=== PATIENT | male | born 1980 | race Caucasian/White ===

== ENCOUNTER 2016-10-20 03:26 | Inpatient (IN) | payer SELFPAY ==
[2016-10-20 04:06] LABS: BILIRUBIN,URINE NEGATIVE (NEGATIVE); BLOOD/HEMOGLOBIN,URINE 1+ (NEGATIVE); GLUCOSE, URINE NEGATIVE (NEGATIVE); KETONES,URINE 1+ (NEGATIVE); LEUKOCYTE ESTERASE ,URINE NEGATIVE (NEGATIVE); NITRITES,URINE NEGATIVE (NEGATIVE); PROTEIN,URINE 2+ (NEGATIVE); UROBILINOGEN,URINE 1+ (NORMAL)
[2016-10-20 04:13] LABS: COLOR,URINE YELLOW (YELLOW)
[2016-10-20 04:14] LABS: APPEARANCE,URINE SLIGHTLY HAZY (CLEAR); BACTERIA,URINE NEGATIVE /HPF (NEGATIVE); MUCUS,URINE FEW /HPF (NEGATIVE); SQUAMOUS EPITHELIAL CELL,UR FEW /HPF (NEGATIVE)
[2016-10-20 04:19] LABS: ALANINE AMINOTRANSFERASE 23 Units/L (12-78); ALBUMIN 3.8 g/dL (3.4-5.0); ALKALINE PHOSPHATASE 126 Units/L (46-116); AMYLASE 41 Units/L (25-115); ASPARTATE AMINO TRANSFERASE 15 Units/L (15-37); BLOOD UREA NITROGEN 10 mg/dL (7-18); CALCIUM 8.6 mg/dL (8.5-10.1); CHLORIDE 103 mmol/L (98-107); COR NA(FOR HYPERGLY) 141 mmol/L (136-145); CREATININE 1.02 mg/dL (0.70-1.30); GLUCOSE 116 mg/dL (65-99); LIPASE 95 Units/L (73-393); SODIUM 141 mmol/L (136-145); TOTAL PROTEIN 7.8 g/dL (6.4-8.2); eGFR BLACK RACES > 60 (>60); eGFR NON BLACK RACES > 60 (>60)
[2016-10-20 04:25] LABS: BASOPHILS # (AUTO) 0.1 X10^3/uL (0.0-0.1); BASOPHILS % (AUTO) 0.6 % (0.2-1.0); EOSINOPHILS # (AUTO) 0.2 x10^3/uL (0.0-0.2); EOSINOPHILS % (AUTO) 1.4 % (0.9-2.9); HEMATOCRIT 46.6 % (42.0-54.0); HEMOGLOBIN 16.3 g/dL (13.5-18.0); LYMPHOCYTES # (AUTO) 1.8 X10^3/uL (1.3-2.9); LYMPHOCYTES % (AUTO) 12.5 % (21.0-51.0); MEAN CORPUSCULAR HEMOGLOBIN 32.5 pg (27.0-34.0); MEAN CORPUSCULAR HGB CONC 34.8 g/dL (33.0-35.0); MEAN CORPUSCULAR VOLUME 93.3 fL (80.0-100.0); MEAN PLATELET VOLUME 8.5 fL (7.4-11.0); MONOCYTES # (AUTO) 0.9 x10^3/uL (0.3-0.8); MONOCYTES % (AUTO) 5.8 % (0.0-13.0); NEUTROPHILS # (AUTO) 11.7 x10^3/uL (2.2-4.8); NEUTROPHILS % (AUTO) 79.7 % (42.0-75.0); PLATELET COUNT 266 X10^3/uL (150.0-450.0); WHITE BLOOD COUNT 14.7 X10^3/uL (3.6-10.0)
--- NOTE | 2016-10-20 04:27 | DR.GENAD ---
HPI - PCP Primary Care Physician: NFD - HPI Comment HPI Comment: Pt c/o abd pain with nausae and vomiting all day today. he denies F /C /D/and sweats. - Complaint/Symptoms Chief Complaint Doctors Comments: Abd pain wioth nausea and vomiting Chief Complaint:: ABD PAIN AND NV ONSET YESTERDAY Self Treatment fo Chief Complaint: PEPTO BISMOL - Nurses notes reviewed Nurses Notes Review: Yes - Source History Provided: Patient - Mode of Arrival Mode of Arrival: Ambulatory - Timing Onset of Chief Complaint: 10/20/16 Came on: Gradually - Duration Duration: Since Onset How lon Duration: Days - Severity Severity: Moderate - Associated Signs and Symptoms Associated Signs and Symptoms: nausea and vomiting <JANINE STEIN - Last Filed: 10/20/16 07:01> PMH - PMH Past Medical History: No Past Surgical History: No - Family History History of Family Medical Conditions: Yes Family Medical History: Cancer Family Medical History Comment: FATHER - Social History Does patient currently use any type of tobacco product: Yes Have you used tobacco products in the last 12 months: Yes Type of Tobacco Use: Cigarettes Does any household member use tobacco: No Alcohol Use: None Do you use any recreational Drugs:: No Lives With: Spouse Lives Where: Home - infectious screening In the last 2 months have you had wt loss of >10#?: NO Have you had fever, night sweats or hemotysis?: No Have you traveled outside the country in the last 6 months?: No Isolation: Standard <JANINE STEIN - Last Filed: 10/20/16 07:01> ROS - Review of Systems Constitutional: No Symptoms Reported, Loss of Appetite Eyes: No Symptoms Reported ENTM: No Symptoms Reported Respiratoy: No Symptoms Reported Cardiovascular: No Symptoms Reported Gastrointestinal/Abdominal: See HPI, Abdominal Pain, Nausea, Vomiting Genitourinary: No Symptoms Reported Neurological: No Symptoms Reported, Emotional Problems Musculoskeletal: No Symptoms Reported Integumentary: No Symptoms Reported Hematologic/Lymphatic: No Symptoms Reported Endocrine: No Symptoms Reported Psychiatric: No Symptoms Reported All Other Systems: Reviewed and Negative <JANINE STEIN - Last Filed: 10/20/16 07:01> PE - General Limitations: No Limitations General Appearance: Alert, In No Apparent Distress - Head Head Exam: Normal Inspection, Atraumatic - ENT ENT Exam: Normal Exam, Normal Oropharynx, Mucous Membranes Moist External Ear Exam: Normal External Inspection TM/Canal Exam: Bilateral Normal Nose Exam: Normal Nose Exam Mouth Exam: Normal Inspection Throat Exam: Normal Inspection - Neck Neck Exam: Normal Inspection, Full ROM, Trachea Midline - Chest Chest Inspection: Normal Inspection, Symmetric Chest Wall Rise - Respiratory Respiratory Exam: Normal Lung Sounds Bilat Respiratory Exam: Bilateral Clear to Auscultation - Cardiovascular Cardiovascular Exam: Regular Rate, Normal Rhythm, Normal Heart Sounds - Abdominal Exam Abdominal Exam: Normal Inspection, Soft, Tenderness, Rebound, Hyperactive Bowel Sounds Abdominal Tenderness: RLQ, Epigastrium (para umbilical), Moderate - Extremities Extremities Exam: Normal Inspection, Full ROM - Back Back Exam: Normal Inspection - Neurologic Neurological Exam: Alert, Oriented X3, CN II-XII Intact - Psychiatric Psychiatric Exam: Normal Affect, Normal Mood - Skin Skin Exam: Warm, Dry, Intact, Normal Color <JANINE STEIN - Last Filed: 10/20/16 07:01> MDM - Differential Diagnosis Differential Diagnosis: gastroenteritis, viral syndrome, gastritis, cholecystitis <JANINE STEIN - Last Filed: 10/20/16 07:01> Course - Treatment Treatment: SEE ORDERS - Consultation Consultation Comments: DR COTE TAKING PATIENT TO OR. DR. METCALF WILL ADMIT PATIENT. - Education/Counseling Education/Counseling: Patient, Education Educated On: Treatment, Diagnosis <ALCIDES PALUMBO - Last Filed: 10/23/16 11:29> ROR - Labs Reviewed Result Diagrams: 10/20/16 03:50 10/20/16 03:50 <JANINE STEIN - Last Filed: 10/20/16 07:01> - Labs Reviewed Laboratory Results Reviewed?: Yes Result Diagrams: 10/23/16 03:05 10/23/16 03:05 - XRAY XRAY Interpreted by: Radiologist XRAY Findings: REPORT DISCUSS WITH PATIENT <ALCIDES PALUMBO - Last Filed: 10/23/16 11:29> - Labs Reviewed Laboratory: WBC 9.1 X10^3/uL (3.6-10.0) 10/23/16 03:05 RBC 3.81 X10^6/uL (4.7-6.0) L 10/23/16 03:05 Hgb 12.6 g/dL (13.5-18.0) L 10/23/16 03:05 Hct 35.3 % (42.0-54.0) L 10/23/16 03:05 MCV 92.8 fL (80.0-100.0) 10/23/16 03:05 MCH 33.1 pg (27.0-34.0) 10/23/16 03:05 MCHC 35.7 g/dL (33.0-35.0) H 10/23/16 03:05 RDW 12.8 % (11.6-16.5) 10/23/16 03:05 Plt Count 221 X10^3/uL (150.0-450.0) 10/23/16 03:05 MPV 9.3 fL (7.4-11.0) 10/23/16 03:05 Neut % 80.0 % (42.0-75.0) H 10/23/16 03:05 Lymph % 9.2 % (21.0-51.0) L 10/23/16 03:05 [place] % 6.7 % (0.0-13.0) 10/23/16 03:05 Eos % 3.6 % (0.9-2.9) H 10/23/16 03:05 Baso % 0.5 % (0.2-1.0) 10/23/16 03:05 Neut # 7.3 x10^3/uL (2.2-4.8) H 10/23/16 03:05 Lymph # 0.8 X10^3/uL (1.3-2.9) L 10/23/16 03:05 [place] # 0.6 x10^3/uL (0.3-0.8) 10/23/16 03:05 Eos # 0.3 x10^3/uL (0.0-0.2) H 10/23/16 03:05 Baso # 0.0 X10^3/uL (0.0-0.1) 10/23/16 03:05 Absolute Nucleated RBC 0.0 /100WBC 10/23/16 03:05 Sodium 141 mmol/L (136-145) 10/23/16 03:05 Corrected Sodium TNP 10/23/16 03:05 Potassium 2.9 mmol/L (3.5-5.1) L* 10/23/16 03:05 Chloride 101 mmol/L (98-107) 10/23/16 03:05 Carbon Dioxide 35.6 mmol/L (21-32) H 10/23/16 03:05 BUN 14 mg/dL (7-18) 10/23/16 03:05 Creatinine 1.02 mg/dL (0.70-1.30) 10/23/16 03:05 Est GFR (MDRD) Af Amer > 60 (>60) 10/23/16 03:05 Est GFR (MDRD) Non-Af > 60 (>60) 10/23/16 03:05 Glucose 110 mg/dL (65-99) H 10/23/16 03:05 Calcium 7.9 mg/dL (8.5-10.1) L 10/23/16 03:05 Corrected Calcium 9.3 mg/dL (8.5-10.1) 10/23/16 03:05 Magnesium 1.8 mg/dL (1.7-2.9) 10/23/16 03:05 Total Bilirubin 1.30 mg/dL (0.2-1.0) H 10/23/16 03:05 AST 16 Units/L (15-37) 10/23/16 03:05 ALT 16 Units/L (12-78) 10/23/16 03:05 Alkaline Phosphatase 66 Units/L (46-116) 10/23/16 03:05 Total Protein 6.2 g/dL (6.4-8.2) L 10/23/16 03:05 Albumin 2.2 g/dL (3.4-5.0) L 10/23/16 03:05 Globulin 4.0 g/dL (2.5-4.5) 10/23/16 03:05 Albumin/Globulin Ratio 0.6 Ratio (1.1-2.1) L 10/23/16 03:05 Amylase 41 Units/L (25-115) 10/20/16 03:50 Lipase 95 Units/L (73-393) 10/20/16 03:50 Specimen Type Clean catch urine 10/20/16 03:46 Urine Color Yellow (YELLOW) 10/20/16 03:46 Urine Appearance Slightly hazy (CLEAR) 10/20/16 03:46 Urine pH 6.0 (5.0 - 8.0) 10/20/16 03:46 Ur Specific [place] 1.025 (1.000-1.030) 10/20/16 03:46 Urine Protein 2+ (NEGATIVE) 10/20/16 03:46 Urine Glucose (UA) Negative (NEGATIVE) 10/20/16 03:46 Urine Ketones 1+ (NEGATIVE) 10/20/16 03:46 Urine Occult Blood 1+ (NEGATIVE) 10/20/16 03:46 Urine Nitrite Negative (NEGATIVE) 10/20/16 03:46 Urine Bilirubin Negative (NEGATIVE) 10/20/16 03:46 Urine Urobilinogen 1+ (NORMAL) 10/20/16 03:46 Ur Leukocyte Esterase Negative (NEGATIVE) 10/20/16 03:46 Urine RBC 2-6 /HPF (NEGATIVE) 10/20/16 03:46 Urine WBC 0-3 /HPF (NEGATIVE) 10/20/16 03:46 Ur Squamous Epith Cells Few /HPF (NEGATIVE) 10/20/16 03:46 Urine Bacteria Negative /HPF (NEGATIVE) 10/20/16 03:46 Urine Mucus Few /HPF (NEGATIVE) 10/20/16 03:46 Ur Culture Indicated? No/not indicated 10/20/16 03:46 Tissue Pathology To follow 10/20/16 11:56 (JANINE STEIN) (ALCIDES PALUMBO) <JANINE STEIN - Last Filed: 10/20/16 07:01> <ALCIDES PALUMBO - Last Filed: 10/23/16 11:29> - Diagnosis Discharge Problem: Gastroenteritis, Appendicitis, acute Abdominal pain Qualifiers: Abdominal location: periumbilical Qualified Code(s): R10.33 - Periumbilical pain Ileitis, terminal Qualifiers: Digestive disease complication type: with intestinal obstruction Qualified Code (s): K50.012 - Crohn's disease of small intestine with intestinal obstruction - Discharge Plan Disposition: ADMITTED INPATIENT Condition: Stable
[2016-10-20] MEDS ORDERED: NS 1000 ML 300 ML IV ONE (04:39)
[2016-10-20] MEDS ORDERED: TORADOL 60 MG VIAL IVP ONE (04:39)
[2016-10-20] MEDS ORDERED: ZOFRAN INJ 4 MG VIAL IVP ONE (04:40)
[2016-10-20] MEDS ORDERED: PEPCID 20 MG IV PREMIX* 20 MG/50 ML BAG IV ONE ×2 (04:41→04:45)
[2016-10-20] MEDS ORDERED: ZOFRAN INJ 4 MG VIAL ONE ×3 (04:45→15:06)
[2016-10-20] MEDS ORDERED: NS 1000 ML 1,000 ML ONE ×2 (04:45→07:32)
[2016-10-20] MEDS ORDERED: TORADOL 30 MG VIAL ONE (04:45)
--- NOTE | 2016-10-20 04:50 | RAD ---
EXAM: Abdomen series and Chest x-ray INDICATION: Abdominal pain COMPARISION: No priors TECHNIQUE: Abdomen flat and upright, two views and PA view of the chest, single view FINDINGS: The lungs are clear. No pneumothorax or pleural effusion. The cardiac silhouette and mediastinum are normal. The bowel gas pattern is nonobstructed. No abnormal mass effect or calcification. The regio nal skeleton is intact. No free air is seen under the hemidiaphragms. IMPRESSION: Normal abdominal series and chest x-ray. Reported By:
[2016-10-20] MEDS ORDERED: NS 100 ML IV 100 ML IV ONE (04:59)
--- NOTE | 2016-10-20 06:54 | CT ---
CT abdomen and pelvis with contrast Indication: Abdominal pain Comparison: None available Technique: Multiple axial images of the abdomen and pelvis were obtained from the lung bases to the pubic symph ysis after the administration of IV contrast. Coronal and sagittal reformatted images were also pro vided. Radiation dose reduction techniques were performed utilizing adjustment for MA/kVP based on patient body size. Findings: The the lung bases are clear. No focal hepatic lesion. The gallbladder, bile ducts, spleen, pancreas and adrenal glands are normal. The right kidney demonstrates no evidence of nephrolithiasis or hydr onephrosis. The left kidney contains an approximate 3.5 mm stone within the midpole. No ureteral sto ne or hydroureteronephrosis. Urinary bladder is normal. Prostate gland is normal. Upper GI tract dem onstrates a small sliding hiatal hernia. There is fecalization of the terminal ileum with increased mucosal enhancement and small amount of fluid surrounding the dilated loop of terminal ileum. Small amount of fluid is also noted adjacent to multiple loops of left lower quadrant small bowel and desc ending colon. At the bases cecum there is either inflamed loop of small bowel or an inflamed appendi x seen best on coronal image 26 and axial image 70. No normal appearing appendix is identified. Is a bdominal aorta is normal in caliber. Small amount of pelvic free fluid. The mildly enlarged right lower quadrant mesenteric lymph nodes. No acute osseous abnormality. Impression: 1.An acute inflammatory process within the right lower quadrant with moderate mucosal enhancement, d ilatation and fecalization of the terminal ileum extending to the cecal base consistent with a funct ional early partial small bowel obstruction. There is also an inflammatory process inferior to the c ecal base in the expected location of the appendix which may represent an inflamed appendix or an ad ditional loop of inflamed distal small bowel. Given lack of visualized of a normal appendix differen tial considerations include both acute appendicitis with reactive terminal ileitis or an acute infla mmatory process such as Crohn's disease with secondary involvement of the appendix. Correlation with clinical findings and surgical consultation are recommended . 2. Small amount of fluid surrounding several loops of left lower quadrant and right lower quadrant s mall bowel and colon raises concern for developing ischemia/severe inflammation. No free air or pneu matosis. 3. Nonobstructing stone within the midpole left kidney. Reported By:
[2016-10-20] MEDS ORDERED: ZOSYN VIAL 3.375 GM IV ONE (07:31)
[2016-10-20] MEDS ORDERED: NS 100 ML IV + SPIKE MINIBAG* 100 ML IV ONE (07:31)
[2016-10-20] MEDS ORDERED: ZOFRAN INJ 4 MG VIAL IVP PRN ×2 (07:42→11:57)
[2016-10-20] MEDS ORDERED: MORPHINE SULFATE INJ 2 MG IVP PRN (07:42)
[2016-10-20] MEDS ORDERED: PEPCID 20 MG IV PREMIX* 20 MG/50 ML BAG IV PRN (07:42)
[2016-10-20] MEDS ORDERED: LR 1000 ML IV 1,000 ML IV ONE ×3 (08:30→11:04)
[2016-10-20] MEDS ORDERED: DILAUDID INJ ONE (08:54)
[2016-10-20] MEDS: FENTANYL INJ 250 mcg ONE ×2 (08:56→09:09)
[2016-10-20] MEDS: MARCAINE 0.25% WITH EPI IJ ONE ×2 (08:56→09:32)
[2016-10-20] MEDS: XYLOCAINE 1 % (PLAIN) ONE ×2 (08:56→09:32)
[2016-10-20] MEDS ORDERED: NS IRRIGATION 3000 ML 3,000 ML IR ONE (09:35)
[2016-10-20] MEDS ORDERED: FENTANYL INJ 250 mcg ONE (10:13)
[2016-10-20] MEDS ORDERED: NS IRRIGATION 1000 ML 1,000 ML IR ONE ×5 (10:17→11:06)
[2016-10-20] MEDS ORDERED: FENTANYL INJ 100 mcg ONE (11:15)
[2016-10-20] MEDS ORDERED: REGLAN INJ 10 MG VIAL IVP PRN (11:57)
[2016-10-20] MEDS ORDERED: BENADRYL INJ 50 MG VIAL IVP PRN (11:57)
[2016-10-20] MEDS ORDERED: PHENERGAN INJ 25 MG IVP PRN (11:57)
[2016-10-20] MEDS ORDERED: DILAUDID INJ IVP PRN (11:57)
[2016-10-20] MEDS: MORPHINE SULFATE INJ 2 MG IVP PRN ×3 (13:09→17:04)
[2016-10-20] MEDS: ZOSYN VIAL 4.5 GM 4.5 GM in NS 100 ML IV + SPIKE MINIBAG* 100 ML IV SCH ×3 (13:10→22:17)
[2016-10-20] MEDS ORDERED: DIPRIVAN VIAL ONE ×2 (14:43→15:06)
[2016-10-20] MEDS ORDERED: ULTANE GAS IN ONE ×2 (14:43→15:06)
[2016-10-20] MEDS ORDERED: NORCURON INJ 10 MG VIAL ONE ×2 (14:43→15:06)
[2016-10-20] MEDS ORDERED: DYLOJECT INJ ONE ×2 (14:43→15:06)
[2016-10-20] MEDS ORDERED: QUELICIN (OR ANECTINE) ONE ×2 (14:43→15:06)
[2016-10-20] MEDS: D5 1/2 NS 1000 ML 1,000 ML IV SCH (14:48)
[2016-10-20] MEDS ORDERED: NEOSTIGMINE INJ ONE (15:06)
[2016-10-20] MEDS ORDERED: VERSED ONE (15:06)
[2016-10-20] MEDS ORDERED: ROBINUL ONE (15:06)
[2016-10-20] MEDS: DILAUDID INJ IVP PRN ×4 (17:34→23:31)
[2016-10-20] MEDS: HEPARIN SODIUM INJ 5000 UNITS IVP SCH (18:52)
[2016-10-20] MEDS: PHENERGAN INJ 25 MG IV PRN (23:31)
[2016-10-21] MEDS: DILAUDID INJ IVP PRN ×7 (01:52→20:51)
[2016-10-21] MEDS: HEPARIN SODIUM INJ 5000 UNITS IVP SCH (01:52)
[2016-10-21] MEDS: ZOSYN VIAL 4.5 GM 4.5 GM in NS 100 ML IV + SPIKE MINIBAG* 100 ML IV SCH ×3 (05:12→21:00)
[2016-10-21] MEDS ORDERED: TYLENOL 325 MG TAB PO PRN ×2 (05:22→10:03)
[2016-10-21 06:04] VITALS: BMI 26.3
[2016-10-21] MEDS: D5 1/2 NS 1000 ML 1,000 ML IV SCH ×5 (07:11→20:48)
[2016-10-21 07:47] LABS: BASOPHILS # (AUTO) 0.1 X10^3/uL (0.0-0.1); BASOPHILS % (AUTO) 0.6 % (0.2-1.0); EOSINOPHILS # (AUTO) 0.1 x10^3/uL (0.0-0.2); EOSINOPHILS % (AUTO) 0.9 % (0.9-2.9); HEMATOCRIT 39.4 % (42.0-54.0); HEMOGLOBIN 14.1 g/dL (13.5-18.0); LYMPHOCYTES # (AUTO) 1.5 X10^3/uL (1.3-2.9); LYMPHOCYTES % (AUTO) 14.6 % (21.0-51.0); MEAN CORPUSCULAR HEMOGLOBIN 33.2 pg (27.0-34.0); MEAN CORPUSCULAR HGB CONC 35.7 g/dL (33.0-35.0); MEAN PLATELET VOLUME 9.2 fL (7.4-11.0); MONOCYTES % (AUTO) 9.5 % (0.0-13.0); NEUTROPHILS # (AUTO) 7.7 x10^3/uL (2.2-4.8); NEUTROPHILS % (AUTO) 74.4 % (42.0-75.0); PLATELET COUNT 206 X10^3/uL (150.0-450.0); RED BLOOD COUNT 4.24 X10^6/uL (4.7-6.0); RED CELL DISTRIBUTION WIDTH 13.2 % (11.6-16.5); WHITE BLOOD COUNT 10.3 X10^3/uL (3.6-10.0)
[2016-10-21 07:57] LABS: ALANINE AMINOTRANSFERASE 16 Units/L (12-78); ALBUMIN 2.7 g/dL (3.4-5.0); ALKALINE PHOSPHATASE 79 Units/L (46-116); ASPARTATE AMINO TRANSFERASE 18 Units/L (15-37); BLOOD UREA NITROGEN 10 mg/dL (7-18); CALCIUM 7.8 mg/dL (8.5-10.1); CARBON DIOXIDE 28.1 mmol/L (21-32); CHLORIDE 103 mmol/L (98-107); COR CA(FOR HYPOALB) 8.8 mg/dL (8.5-10.1); COR NA(FOR HYPERGLY) 139 mmol/L (136-145); CREATININE 1.01 mg/dL (0.70-1.30); GLUCOSE 134 mg/dL (65-99); SODIUM 138 mmol/L (136-145); TOTAL PROTEIN 6.2 g/dL (6.4-8.2); eGFR BLACK RACES > 60 (>60); eGFR NON BLACK RACES > 60 (>60)
--- NOTE | 2016-10-21 08:12 | DR.H&P ---
H&P - History & Physical for Day of: H&P Date: 10/20/16 - Chief Complaint Chief Complaint: abdominal pain - Allergies Allergies/Adverse Reactions: Allergies Allergy/AdvReac Type Severity Reaction Status Date / Time No Known Drug Allergies Allergy Verified 10/21/16 02:26 - History of Present Illness History of Present Illness: Patient is a 36yo white male who presented to the emergency with abdominal pain and vomiting. an abominalct was performed which was sugesstive of appendicitis. Patient dr ornelas was consulted and patient admitted - Past Medical History Past Medical History: GERD - Family History Family Medical History: Cancer - Social History Does patient currently use any type of tobacco product: Yes Have you used tobacco products in the last 12 months: Yes Type of Tobacco Use: Cigarettes How many years tobacco product used: 22 Does any household member use tobacco: No Alcohol Use: None Drug Use: None - Review of Systems Constitutional: No Symptoms Reported Eyes: No Symptoms Reported ENT: No Symptoms Reported Respiratory: No Symptoms Reported Cardiovascular: No Symptoms Reported Gastrointestinal: Nausea, Vomiting, Abdominal Pain Genitourinary: No Symptoms Reported Musculoskeletal: No Symptoms Reported Skin: No Symptoms Reported Neurological: No Symptoms Reported - Physical Exam Vital Signs: Temperature 101.4 F Pulse Rate [Right Brachial] 120 Pulse Rate 89 Respiratory Rate 16 Blood Pressure [Right Arm] 134/74 Blood Pressure 147/67 O2 Sat by Pulse Oximetry 91 Oriented: Normal Eyes: Normal Ear: Normal Nose: Normal Throat: Normal Respiratory: Clear Throughout Cardiovascular: Normal : Normal Auscultation: Bowel Sounds: Normal Palpation: Normal Tenderness: LLQ Skin: Normal Musculoskeletal: Normal Psychiatric: Normal Mood Description: Anxious Affect: Anxious Speech Pattern: Clear, Appropriate - Assessment/Plan (1) Abdominal pain Qualifiers: Abdominal location: periumbilical Qualified Code(s): R10.33 - Periumbilical pain Status: Acute Plan: pain medication as needed (2) Appendicitis, acute Qualifiers: Acute appendicitis type: unspecified acute appendicitis type Qualified Code (s): K35.80 - Unspecified acute appendicitis Status: Acute Plan: consult dr ornelas
--- NOTE | 2016-10-21 08:16 | PCM.PROG ---
Progress Note - Progress Note for Day of Date: 10/21/16 - Subjective Subjective: Patient is a 36yo who is day 1 post op appendectomy. Patient began running a fever this am of 101.4. Patient is complain ing of pain un relieved by dilaudid 0.5mg and nausea. we are going to increase his dilaudid, place NGT on low intermittent suction and give toradol. repeat labs in the am and patient may have ice chips - Past Medical Family Social History Past Med/Fam/Surg Hx: No changes since H&P Allergies: Allergies No Known Drug Allergies Allergy (Verified 10/21/16 02:26) - Review of Systems ROS: No change since H&P - Vital Signs and I&O's Vital Signs: Temperature 101.4 F Pulse Rate [Right Brachial] 120 Pulse Rate 89 Respiratory Rate 16 Blood Pressure [Right Arm] 134/74 Blood Pressure 147/67 O2 Sat by Pulse Oximetry 91 Intake and Output: Intake & Output 10/18/16 10/19/16 10/20/16 10/21/16 11:59 11:59 11:59 11:59 Intake Total 1200 Output Total 4350 350 Balance -4350 850 - Physical Exam Oriented: Normal Eyes: Normal Ear: Normal Nose: Normal Throat: Normal Cardiovascular: Normal : Normal Auscultation: Bowel Sounds: Normal Palpation: Normal Tenderness: Diffuse Skin: Normal Musculoskeletal: Normal Psychiatric: Normal Mood Description: Anxious Affect: Anxious Speech Pattern: Clear, Appropriate - Laboratory and Diagnostics Result Diagrams: 10/21/16 06:25 10/21/16 06:25 Labs: Laboratory WBC 10.3 X10^3/uL (3.6-10.0) H 10/21/16 06:25 RBC 4.24 X10^6/uL (4.7-6.0) L 10/21/16 06:25 Hgb 14.1 g/dL (13.5-18.0) 10/21/16 06:25 Hct 39.4 % (42.0-54.0) L 10/21/16 06:25 MCV 93.0 fL (80.0-100.0) 10/21/16 06:25 MCH 33.2 pg (27.0-34.0) 10/21/16 06:25 MCHC 35.7 g/dL (33.0-35.0) H 10/21/16 06:25 RDW 13.2 % (11.6-16.5) 10/21/16 06:25 Plt Count 206 X10^3/uL (150.0-450.0) 10/21/16 06:25 MPV 9.2 fL (7.4-11.0) 10/21/16 06:25 Neut % 74.4 % (42.0-75.0) 10/21/16 06:25 Lymph % 14.6 % (21.0-51.0) L 10/21/16 06:25 [place] % 9.5 % (0.0-13.0) 10/21/16 06:25 Eos % 0.9 % (0.9-2.9) 10/21/16 06:25 Baso % 0.6 % (0.2-1.0) 10/21/16 06:25 Neut # 7.7 x10^3/uL (2.2-4.8) H 10/21/16 06:25 Lymph # 1.5 X10^3/uL (1.3-2.9) 10/21/16 06:25 [place] # 1.0 x10^3/uL (0.3-0.8) H 10/21/16 06:25 Eos # 0.1 x10^3/uL (0.0-0.2) 10/21/16 06:25 Baso # 0.1 X10^3/uL (0.0-0.1) 10/21/16 06:25 Absolute Nucleated RBC 0.1 /100WBC 10/21/16 06:25 Sodium 138 mmol/L (136-145) 10/21/16 06:25 Corrected Sodium 139 mmol/L (136-145) 10/21/16 06:25 Potassium 3.7 mmol/L (3.5-5.1) 10/21/16 06:25 Chloride 103 mmol/L (98-107) 10/21/16 06:25 Carbon Dioxide 28.1 mmol/L (21-32) 10/21/16 06:25 BUN 10 mg/dL (7-18) 10/21/16 06:25 Creatinine 1.01 mg/dL (0.70-1.30) 10/21/16 06:25 Est GFR (MDRD) Af Amer > 60 (>60) 10/21/16 06:25 Est GFR (MDRD) Non-Af > 60 (>60) 10/21/16 06:25 Glucose 134 mg/dL (65-99) H 10/21/16 06:25 Calcium 7.8 mg/dL (8.5-10.1) L 10/21/16 06:25 Corrected Calcium 8.8 mg/dL (8.5-10.1) 10/21/16 06:25 Total Bilirubin 1.90 mg/dL (0.2-1.0) H 10/21/16 06:25 AST 18 Units/L (15-37) 10/21/16 06:25 ALT 16 Units/L (12-78) 10/21/16 06:25 Alkaline Phosphatase 79 Units/L (46-116) 10/21/16 06:25 Total Protein 6.2 g/dL (6.4-8.2) L 10/21/16 06:25 Albumin 2.7 g/dL (3.4-5.0) L 10/21/16 06:25 Globulin 3.5 g/dL (2.5-4.5) 10/21/16 06:25 Albumin/Globulin Ratio 0.8 Ratio (1.1-2.1) L 10/21/16 06:25 Amylase 41 Units/L (25-115) 10/20/16 03:50 Lipase 95 Units/L (73-393) 10/20/16 03:50 Specimen Type Clean catch urine 10/20/16 03:46 Urine Color Yellow (YELLOW) 10/20/16 03:46 Urine Appearance Slightly hazy (CLEAR) 10/20/16 03:46 Urine pH 6.0 (5.0 - 8.0) 10/20/16 03:46 Ur Specific [place] 1.025 (1.000-1.030) 10/20/16 03:46 Urine Protein 2+ (NEGATIVE) 10/20/16 03:46 Urine Glucose (UA) Negative (NEGATIVE) 10/20/16 03:46 Urine Ketones 1+ (NEGATIVE) 10/20/16 03:46 Urine Occult Blood 1+ (NEGATIVE) 10/20/16 03:46 Urine Nitrite Negative (NEGATIVE) 10/20/16 03:46 Urine Bilirubin Negative (NEGATIVE) 10/20/16 03:46 Urine Urobilinogen 1+ (NORMAL) 10/20/16 03:46 Ur Leukocyte Esterase Negative (NEGATIVE) 10/20/16 03:46 Urine RBC 2-6 /HPF (NEGATIVE) 10/20/16 03:46 Urine WBC 0-3 /HPF (NEGATIVE) 10/20/16 03:46 Ur Squamous Epith Cells Few /HPF (NEGATIVE) 10/20/16 03:46 Urine Bacteria Negative /HPF (NEGATIVE) 10/20/16 03:46 Urine Mucus Few /HPF (NEGATIVE) 10/20/16 03:46 Ur Culture Indicated? No/not indicated 10/20/16 03:46 Tissue Pathology To follow 10/20/16 11:56 - Plan (1) Abdominal pain Status: Acute Qualifiers: Abdominal location: periumbilical Qualified Code(s): R10.33 - Periumbilical pain Plan: increase dilaudid to 1-2mg PRN (2) Appendicitis, acute Status: Resolved Qualifiers: Acute appendicitis type: unspecified acute appendicitis type Qualified Code (s): K35.80 - Unspecified acute appendicitis Plan: consult dr ornelas (3) S/P appendectomy Status: Acute Plan: pain control dr ornelas to follow
[2016-10-21] MEDS: TORADOL 30 MG VIAL IVP PRN ×2 (08:53→17:44)
--- NOTE | 2016-10-21 10:23 | PCM.PROG ---
Progress Note - Subjective Subjective: Pain controlled. (+) OOB. (+) Nausea. (-) Vomiting. (-) Flatus. (-) Dysuria. Using Incentive Spironmeter. - Past Medical Family Social History Past Med/Fam/Surg Hx: No changes since H&P Allergies: Allergies No Known Drug Allergies Allergy (Verified 10/21/16 02:26) - Review of Systems ROS: No change since H&P - Vital Signs and I&O's Vital Signs: Temperature 101.4 F Pulse Rate [Right Brachial] 120 Pulse Rate 105 Respiratory Rate 16 Blood Pressure [Right Arm] 134/74 Blood Pressure 147/67 O2 Sat by Pulse Oximetry 95 Intake and Output: Intake & Output 10/18/16 10/19/16 10/20/16 10/21/16 11:59 11:59 11:59 11:59 Intake Total 1200 Output Total 4350 350 Balance -4350 850 - Physical Exam Oriented: Normal Eyes: Normal Ear: Normal Nose: Normal Throat: Normal Respiratory: Diminished Cardiovascular: Normal : Normal Auscultation: Bowel Sounds: Normal, Decreased Palpation: Other (Approp. TTP. Dressing C/D/I.) Tenderness: Diffuse Skin: Normal Musculoskeletal: Normal Psychiatric: Normal Mood Description: Anxious Affect: Anxious Speech Pattern: Clear, Appropriate - Laboratory and Diagnostics Result Diagrams: 10/21/16 06:25 10/21/16 06:25 Labs: Laboratory WBC 10.3 X10^3/uL (3.6-10.0) H 10/21/16 06:25 RBC 4.24 X10^6/uL (4.7-6.0) L 10/21/16 06:25 Hgb 14.1 g/dL (13.5-18.0) 10/21/16 06:25 Hct 39.4 % (42.0-54.0) L 10/21/16 06:25 MCV 93.0 fL (80.0-100.0) 10/21/16 06:25 MCH 33.2 pg (27.0-34.0) 10/21/16 06:25 MCHC 35.7 g/dL (33.0-35.0) H 10/21/16 06:25 RDW 13.2 % (11.6-16.5) 10/21/16 06:25 Plt Count 206 X10^3/uL (150.0-450.0) 10/21/16 06:25 MPV 9.2 fL (7.4-11.0) 10/21/16 06:25 Neut % 74.4 % (42.0-75.0) 10/21/16 06:25 Lymph % 14.6 % (21.0-51.0) L 10/21/16 06:25 [place] % 9.5 % (0.0-13.0) 10/21/16 06:25 Eos % 0.9 % (0.9-2.9) 10/21/16 06:25 Baso % 0.6 % (0.2-1.0) 10/21/16 06:25 Neut # 7.7 x10^3/uL (2.2-4.8) H 10/21/16 06:25 Lymph # 1.5 X10^3/uL (1.3-2.9) 10/21/16 06:25 [place] # 1.0 x10^3/uL (0.3-0.8) H 10/21/16 06:25 Eos # 0.1 x10^3/uL (0.0-0.2) 10/21/16 06:25 Baso # 0.1 X10^3/uL (0.0-0.1) 10/21/16 06:25 Absolute Nucleated RBC 0.1 /100WBC 10/21/16 06:25 Sodium 138 mmol/L (136-145) 10/21/16 06:25 Corrected Sodium 139 mmol/L (136-145) 10/21/16 06:25 Potassium 3.7 mmol/L (3.5-5.1) 10/21/16 06:25 Chloride 103 mmol/L (98-107) 10/21/16 06:25 Carbon Dioxide 28.1 mmol/L (21-32) 10/21/16 06:25 BUN 10 mg/dL (7-18) 10/21/16 06:25 Creatinine 1.01 mg/dL (0.70-1.30) 10/21/16 06:25 Est GFR (MDRD) Af Amer > 60 (>60) 10/21/16 06:25 Est GFR (MDRD) Non-Af > 60 (>60) 10/21/16 06:25 Glucose 134 mg/dL (65-99) H 10/21/16 06:25 Calcium 7.8 mg/dL (8.5-10.1) L 10/21/16 06:25 Corrected Calcium 8.8 mg/dL (8.5-10.1) 10/21/16 06:25 Total Bilirubin 1.90 mg/dL (0.2-1.0) H 10/21/16 06:25 AST 18 Units/L (15-37) 10/21/16 06:25 ALT 16 Units/L (12-78) 10/21/16 06:25 Alkaline Phosphatase 79 Units/L (46-116) 10/21/16 06:25 Total Protein 6.2 g/dL (6.4-8.2) L 10/21/16 06:25 Albumin 2.7 g/dL (3.4-5.0) L 10/21/16 06:25 Globulin 3.5 g/dL (2.5-4.5) 10/21/16 06:25 Albumin/Globulin Ratio 0.8 Ratio (1.1-2.1) L 10/21/16 06:25 Amylase 41 Units/L (25-115) 10/20/16 03:50 Lipase 95 Units/L (73-393) 10/20/16 03:50 Specimen Type Clean catch urine 10/20/16 03:46 Urine Color Yellow (YELLOW) 10/20/16 03:46 Urine Appearance Slightly hazy (CLEAR) 10/20/16 03:46 Urine pH 6.0 (5.0 - 8.0) 10/20/16 03:46 Ur Specific [place] 1.025 (1.000-1.030) 10/20/16 03:46 Urine Protein 2+ (NEGATIVE) 10/20/16 03:46 Urine Glucose (UA) Negative (NEGATIVE) 10/20/16 03:46 Urine Ketones 1+ (NEGATIVE) 10/20/16 03:46 Urine Occult Blood 1+ (NEGATIVE) 10/20/16 03:46 Urine Nitrite Negative (NEGATIVE) 10/20/16 03:46 Urine Bilirubin Negative (NEGATIVE) 10/20/16 03:46 Urine Urobilinogen 1+ (NORMAL) 10/20/16 03:46 Ur Leukocyte Esterase Negative (NEGATIVE) 10/20/16 03:46 Urine RBC 2-6 /HPF (NEGATIVE) 10/20/16 03:46 Urine WBC 0-3 /HPF (NEGATIVE) 10/20/16 03:46 Ur Squamous Epith Cells Few /HPF (NEGATIVE) 10/20/16 03:46 Urine Bacteria Negative /HPF (NEGATIVE) 10/20/16 03:46 Urine Mucus Few /HPF (NEGATIVE) 10/20/16 03:46 Ur Culture Indicated? No/not indicated 10/20/16 03:46 Tissue Pathology To follow 10/20/16 11:56 - Plan (1) S/P small bowel resection Status: Acute Narrative Support Text: POD #1 Stable post-op. (+) fever. Likely atelectasis. Pulmonary toilet / IS use. Continue IV abx. for perforation with contamination. WBC decreased. Continue NGT - place to LIWS until flatus. Dressing take down in am. Plan: Routine post-op care. (2) Fever Status: Acute Qualifiers: Fever type: post-procedural Encounter type: E Qualified Code(s): R50.82 - Postprocedural fever Plan: Monitor. See SBR text. (3) DVT prophylaxis Status: Acute Plan: Heparin 5000 units subcut. q8.
[2016-10-21] MEDS: HEPARIN SODIUM INJ 5000 UNITS SC SCH ×2 (12:20→18:56)
[2016-10-21] MEDS: PHENERGAN INJ 25 MG IV PRN (20:50)
[2016-10-22] MEDS: HEPARIN SODIUM INJ 5000 UNITS SC SCH ×3 (00:04→16:24)
[2016-10-22] MEDS: TORADOL 30 MG VIAL IVP PRN ×3 (00:05→19:49)
[2016-10-22] MEDS: D5 1/2 NS 1000 ML 1,000 ML IV SCH ×4 (02:29→21:27)
[2016-10-22] MEDS: PHENERGAN INJ 25 MG IV PRN (04:22)
[2016-10-22] MEDS: DILAUDID INJ IVP PRN ×4 (04:22→23:13)
[2016-10-22] MEDS: ZOSYN VIAL 4.5 GM 4.5 GM in NS 100 ML IV + SPIKE MINIBAG* 100 ML IV SCH ×3 (05:40→21:23)
[2016-10-22 06:15] LABS: ALANINE AMINOTRANSFERASE 16 Units/L (12-78); ALBUMIN 2.5 g/dL (3.4-5.0); ALKALINE PHOSPHATASE 71 Units/L (46-116); ASPARTATE AMINO TRANSFERASE 17 Units/L (15-37); BLOOD UREA NITROGEN 13 mg/dL (7-18); CALCIUM 8.2 mg/dL (8.5-10.1); CARBON DIOXIDE 35.1 mmol/L (21-32); CHLORIDE 102 mmol/L (98-107); COR CA(FOR HYPOALB) 9.4 mg/dL (8.5-10.1); CREATININE 1.15 mg/dL (0.70-1.30); GLUCOSE 102 mg/dL (65-99); SODIUM 140 mmol/L (136-145); TOTAL PROTEIN 6.3 g/dL (6.4-8.2); eGFR BLACK RACES > 60 (>60); eGFR NON BLACK RACES > 60 (>60)
[2016-10-22 06:24] LABS: BASOPHILS # (AUTO) 0.1 X10^3/uL (0.0-0.1); BASOPHILS % (AUTO) 0.5 % (0.2-1.0); EOSINOPHILS # (AUTO) 0.3 x10^3/uL (0.0-0.2); EOSINOPHILS % (AUTO) 3.3 % (0.9-2.9); HEMOGLOBIN 13.1 g/dL (13.5-18.0); LYMPHOCYTES # (AUTO) 1.5 X10^3/uL (1.3-2.9); LYMPHOCYTES % (AUTO) 15.1 % (21.0-51.0); MEAN CORPUSCULAR HEMOGLOBIN 33.1 pg (27.0-34.0); MEAN CORPUSCULAR HGB CONC 35.4 g/dL (33.0-35.0); MEAN CORPUSCULAR VOLUME 93.5 fL (80.0-100.0); MEAN PLATELET VOLUME 9.8 fL (7.4-11.0); NEUTROPHILS # (AUTO) 7.2 x10^3/uL (2.2-4.8); NEUTROPHILS % (AUTO) 71.1 % (42.0-75.0); PLATELET COUNT 192 X10^3/uL (150.0-450.0); RED BLOOD COUNT 3.95 X10^6/uL (4.7-6.0); RED CELL DISTRIBUTION WIDTH 12.7 % (11.6-16.5); WHITE BLOOD COUNT 10.2 X10^3/uL (3.6-10.0)
[2016-10-22] MEDS ORDERED: PERCOCET TAB 5/325 MG PO PRN (09:20)
--- NOTE | 2016-10-22 09:26 | PCM.PROG ---
Progress Note - Progress Note for Day of Date: 10/22/16 - Subjective Subjective: Pain controlled. (+) OOB. (-) Nausea / Vomiting. (+) Flatus. - Past Medical Family Social History Past Med/Fam/Surg Hx: No changes since H&P Allergies: Allergies No Known Drug Allergies Allergy (Verified 10/21/16 02:26) - Review of Systems ROS: No change since H&P - Vital Signs and I&O's Vital Signs: Temperature 99.8 F Pulse Rate [Right Brachial] 109 Pulse Rate 105 Respiratory Rate 18 Blood Pressure [Right Arm] 118/67 Blood Pressure 147/67 O2 Sat by Pulse Oximetry 91 Intake and Output: Intake & Output 10/19/16 10/20/16 10/21/16 10/22/16 11:59 11:59 11:59 11:59 Intake Total 1200 1800 Output Total 4350 850 2150 Balance -4350 350 -350 - Physical Exam Oriented: Normal Eyes: Normal Ear: Normal Nose: Normal Throat: Normal Respiratory: Diminished (Bases bilaterally.) Cardiovascular: Normal : Normal Auscultation: Bowel Sounds: Normal, Decreased (Improved.) Palpation: Normal Tenderness: Diffuse (Approp. TTP) Skin: Normal (Incisions C/D/I.) Musculoskeletal: Normal Psychiatric: Normal Mood Description: Calm Affect: Anxious Speech Pattern: Clear, Appropriate - Laboratory and Diagnostics Result Diagrams: 10/22/16 03:33 10/22/16 03:33 Labs: Laboratory WBC 10.2 X10^3/uL (3.6-10.0) H 10/22/16 03:33 RBC 3.95 X10^6/uL (4.7-6.0) L 10/22/16 03:33 Hgb 13.1 g/dL (13.5-18.0) L 10/22/16 03:33 Hct 37.0 % (42.0-54.0) L 10/22/16 03:33 MCV 93.5 fL (80.0-100.0) 10/22/16 03:33 MCH 33.1 pg (27.0-34.0) 10/22/16 03:33 MCHC 35.4 g/dL (33.0-35.0) H 10/22/16 03:33 RDW 12.7 % (11.6-16.5) 10/22/16 03:33 Plt Count 192 X10^3/uL (150.0-450.0) 10/22/16 03:33 MPV 9.8 fL (7.4-11.0) 10/22/16 03:33 Neut % 71.1 % (42.0-75.0) 10/22/16 03:33 Lymph % 15.1 % (21.0-51.0) L 10/22/16 03:33 [place] % 10.0 % (0.0-13.0) 10/22/16 03:33 Eos % 3.3 % (0.9-2.9) H 10/22/16 03:33 Baso % 0.5 % (0.2-1.0) 10/22/16 03:33 Neut # 7.2 x10^3/uL (2.2-4.8) H 10/22/16 03:33 Lymph # 1.5 X10^3/uL (1.3-2.9) 10/22/16 03:33 [place] # 1.0 x10^3/uL (0.3-0.8) H 10/22/16 03:33 Eos # 0.3 x10^3/uL (0.0-0.2) H 10/22/16 03:33 Baso # 0.1 X10^3/uL (0.0-0.1) 10/22/16 03:33 Absolute Nucleated RBC 0.0 /100WBC 10/22/16 03:33 Sodium 140 mmol/L (136-145) 10/22/16 03:33 Corrected Sodium TNP 10/22/16 03:33 Potassium 3.2 mmol/L (3.5-5.1) L 10/22/16 03:33 Chloride 102 mmol/L (98-107) 10/22/16 03:33 Carbon Dioxide 35.1 mmol/L (21-32) H 10/22/16 03:33 BUN 13 mg/dL (7-18) 10/22/16 03:33 Creatinine 1.15 mg/dL (0.70-1.30) 10/22/16 03:33 Est GFR (MDRD) Af Amer > 60 (>60) 10/22/16 03:33 Est GFR (MDRD) Non-Af > 60 (>60) 10/22/16 03:33 Glucose 102 mg/dL (65-99) H 10/22/16 03:33 Calcium 8.2 mg/dL (8.5-10.1) L 10/22/16 03:33 Corrected Calcium 9.4 mg/dL (8.5-10.1) 10/22/16 03:33 Total Bilirubin 1.80 mg/dL (0.2-1.0) H 10/22/16 03:33 AST 17 Units/L (15-37) 10/22/16 03:33 ALT 16 Units/L (12-78) 10/22/16 03:33 Alkaline Phosphatase 71 Units/L (46-116) 10/22/16 03:33 Total Protein 6.3 g/dL (6.4-8.2) L 10/22/16 03:33 Albumin 2.5 g/dL (3.4-5.0) L 10/22/16 03:33 Globulin 3.8 g/dL (2.5-4.5) 10/22/16 03:33 Albumin/Globulin Ratio 0.7 Ratio (1.1-2.1) L 10/22/16 03:33 Amylase 41 Units/L (25-115) 10/20/16 03:50 Lipase 95 Units/L (73-393) 10/20/16 03:50 Specimen Type Clean catch urine 10/20/16 03:46 Urine Color Yellow (YELLOW) 10/20/16 03:46 Urine Appearance Slightly hazy (CLEAR) 10/20/16 03:46 Urine pH 6.0 (5.0 - 8.0) 10/20/16 03:46 Ur Specific [place] 1.025 (1.000-1.030) 10/20/16 03:46 Urine Protein 2+ (NEGATIVE) 10/20/16 03:46 Urine Glucose (UA) Negative (NEGATIVE) 10/20/16 03:46 Urine Ketones 1+ (NEGATIVE) 10/20/16 03:46 Urine Occult Blood 1+ (NEGATIVE) 10/20/16 03:46 Urine Nitrite Negative (NEGATIVE) 10/20/16 03:46 Urine Bilirubin Negative (NEGATIVE) 10/20/16 03:46 Urine Urobilinogen 1+ (NORMAL) 10/20/16 03:46 Ur Leukocyte Esterase Negative (NEGATIVE) 10/20/16 03:46 Urine RBC 2-6 /HPF (NEGATIVE) 10/20/16 03:46 Urine WBC 0-3 /HPF (NEGATIVE) 10/20/16 03:46 Ur Squamous Epith Cells Few /HPF (NEGATIVE) 10/20/16 03:46 Urine Bacteria Negative /HPF (NEGATIVE) 10/20/16 03:46 Urine Mucus Few /HPF (NEGATIVE) 10/20/16 03:46 Ur Culture Indicated? No/not indicated 10/20/16 03:46 Tissue Pathology To follow 10/20/16 11:56 - Plan (1) S/P small bowel resection Status: Acute Plan: (+) flatus. Clamp NGT. If no N/V, remove this pm. Sowly adv. diet after NGT removed. Continue abx. for perforation. (2) Fever Status: Resolved Qualifiers: Fever type: post-procedural Encounter type: E Qualified Code(s): R50.82 - Postprocedural fever Plan: Improved. WBC noted. Likely atelectasis. Pulmonary toilet. Monitor. (3) DVT prophylaxis Status: Acute Plan: Heparin 5000 units subcut. q8.
[2016-10-23] MEDS: HEPARIN SODIUM INJ 5000 UNITS SC SCH ×3 (01:44→16:31)
[2016-10-23] MEDS: DILAUDID INJ IVP PRN ×5 (02:20→22:35)
[2016-10-23 05:10] LABS: ALANINE AMINOTRANSFERASE 16 Units/L (12-78); ALBUMIN 2.2 g/dL (3.4-5.0); ALKALINE PHOSPHATASE 66 Units/L (46-116); ASPARTATE AMINO TRANSFERASE 16 Units/L (15-37); BLOOD UREA NITROGEN 14 mg/dL (7-18); CALCIUM 7.9 mg/dL (8.5-10.1); CARBON DIOXIDE 35.6 mmol/L (21-32); CHLORIDE 101 mmol/L (98-107); COR CA(FOR HYPOALB) 9.3 mg/dL (8.5-10.1); CREATININE 1.02 mg/dL (0.70-1.30); GLUCOSE 110 mg/dL (65-99); SODIUM 141 mmol/L (136-145); TOTAL PROTEIN 6.2 g/dL (6.4-8.2); eGFR BLACK RACES > 60 (>60); eGFR NON BLACK RACES > 60 (>60)
[2016-10-23 05:16] LABS: BASOPHILS % (AUTO) 0.5 % (0.2-1.0); EOSINOPHILS # (AUTO) 0.3 x10^3/uL (0.0-0.2); EOSINOPHILS % (AUTO) 3.6 % (0.9-2.9); HEMATOCRIT 35.3 % (42.0-54.0); HEMOGLOBIN 12.6 g/dL (13.5-18.0); LYMPHOCYTES # (AUTO) 0.8 X10^3/uL (1.3-2.9); LYMPHOCYTES % (AUTO) 9.2 % (21.0-51.0); MEAN CORPUSCULAR HEMOGLOBIN 33.1 pg (27.0-34.0); MEAN CORPUSCULAR HGB CONC 35.7 g/dL (33.0-35.0); MEAN CORPUSCULAR VOLUME 92.8 fL (80.0-100.0); MEAN PLATELET VOLUME 9.3 fL (7.4-11.0); MONOCYTES # (AUTO) 0.6 x10^3/uL (0.3-0.8); MONOCYTES % (AUTO) 6.7 % (0.0-13.0); NEUTROPHILS # (AUTO) 7.3 x10^3/uL (2.2-4.8); PLATELET COUNT 221 X10^3/uL (150.0-450.0); RED BLOOD COUNT 3.81 X10^6/uL (4.7-6.0); RED CELL DISTRIBUTION WIDTH 12.8 % (11.6-16.5); WHITE BLOOD COUNT 9.1 X10^3/uL (3.6-10.0)
[2016-10-23] MEDS: ZOSYN VIAL 4.5 GM 4.5 GM in NS 100 ML IV + SPIKE MINIBAG* 100 ML IV SCH ×3 (05:33→21:32)
[2016-10-23] MEDS: TORADOL 30 MG VIAL IVP PRN (05:37)
[2016-10-23] MEDS: K-RIDER 10 MEQ/NS 100 ML 10 MEQ/100 ML BAG IV PRN ×8 (06:07→22:34)
[2016-10-23] MEDS: D5 1/2 NS 1000 ML 1,000 ML IV SCH ×2 (06:12→16:30)
[2016-10-23] MEDS ORDERED: TYLENOL SUPP 650 MG RECTAL PRN (12:27)
[2016-10-23] MEDS ORDERED: OFIRMEV IV 1000 MG VIAL 500 MG/50 ML VIAL IV PRN (12:53)
--- NOTE | 2016-10-23 15:20 | RAD ---
Abdomen, one view Indication: NG tube placement Comparison: CT abdomen pelvis October 20, 2016 Findings: Tip of an esophagogastric tube terminates in the proximal stomach with side port just dist al to the GE junction. The tube should be advanced at least 6 cm for more optimal positioning. Postsurgical changes compatible with interval laparotomy are noted with persistent mild gaseous dila tation of the small bowel, measuring up to 4.7 cm. Gas is seen to the level of the rectum. No convin cing pneumatosis or significant free intraperitoneal air is identified. Visualized lung bases are cl ear. Impression: 1. Nasogastric tube terminating in the proximal stomach with side port at the level of the GE juncti on. Recommend advancing the tube at least 6 cm for more optimal positioning. 2. Interval post laparotomy changes with persistent mild small bowel gaseous dilatation, either refl ecting persistent small bowel obstruction or postoperative ileus. Reported By:
[2016-10-23] MEDS: LEVAQUIN PREMIX IV 750 MG 750 MG/150 ML BAG IV SCH (17:49)
[2016-10-24] MEDS ORDERED: POTASSIUM CHLORIDE LIQ 20 MEQ UDC PO ONE (00:13)
[2016-10-24] MEDS: PHENERGAN INJ 25 MG IV PRN (00:30)
[2016-10-24] MEDS: HEPARIN SODIUM INJ 5000 UNITS SC SCH ×3 (01:28→18:28)
[2016-10-24] MEDS: DILAUDID INJ IVP PRN ×3 (03:32→10:02)
[2016-10-24 05:32] LABS: BASOPHILS # (AUTO) 0.1 X10^3/uL (0.0-0.1); BASOPHILS % (AUTO) 1.2 % (0.2-1.0); EOSINOPHILS # (AUTO) 0.5 x10^3/uL (0.0-0.2); EOSINOPHILS % (AUTO) 5.9 % (0.9-2.9); HEMATOCRIT 32.1 % (42.0-54.0); HEMOGLOBIN 11.5 g/dL (13.5-18.0); LYMPHOCYTES # (AUTO) 1.3 X10^3/uL (1.3-2.9); LYMPHOCYTES % (AUTO) 15.3 % (21.0-51.0); MEAN CORPUSCULAR HEMOGLOBIN 33.3 pg (27.0-34.0); MEAN CORPUSCULAR HGB CONC 35.9 g/dL (33.0-35.0); MEAN CORPUSCULAR VOLUME 92.9 fL (80.0-100.0); MEAN PLATELET VOLUME 8.9 fL (7.4-11.0); MONOCYTES # (AUTO) 0.8 x10^3/uL (0.3-0.8); MONOCYTES % (AUTO) 9.7 % (0.0-13.0); NEUTROPHILS # (AUTO) 5.9 x10^3/uL (2.2-4.8); NEUTROPHILS % (AUTO) 67.9 % (42.0-75.0); PLATELET COUNT 227 X10^3/uL (150.0-450.0); RED BLOOD COUNT 3.46 X10^6/uL (4.7-6.0); RED CELL DISTRIBUTION WIDTH 12.8 % (11.6-16.5); WHITE BLOOD COUNT 8.6 X10^3/uL (3.6-10.0)
[2016-10-24 05:43] LABS: ALANINE AMINOTRANSFERASE 17 Units/L (12-78); ALBUMIN 2.2 g/dL (3.4-5.0); ALKALINE PHOSPHATASE 57 Units/L (46-116); ASPARTATE AMINO TRANSFERASE 15 Units/L (15-37); BLOOD UREA NITROGEN 12 mg/dL (7-18); CALCIUM 8.1 mg/dL (8.5-10.1); CARBON DIOXIDE 35.9 mmol/L (21-32); CHLORIDE 102 mmol/L (98-107); COR CA(FOR HYPOALB) 9.5 mg/dL (8.5-10.1); CREATININE 1.01 mg/dL (0.70-1.30); GLUCOSE 93 mg/dL (65-99); SODIUM 141 mmol/L (136-145); TOTAL PROTEIN 6.4 g/dL (6.4-8.2); eGFR BLACK RACES > 60 (>60); eGFR NON BLACK RACES > 60 (>60)
[2016-10-24] MEDS: ZOSYN VIAL 4.5 GM 4.5 GM in NS 100 ML IV + SPIKE MINIBAG* 100 ML IV SCH ×2 (06:09→14:09)
[2016-10-24] MEDS ORDERED: POTASSIUM CHLORIDE LIQ 20 MEQ UDC PO PRN (06:25)
[2016-10-24] MEDS ORDERED: K-LYTE EFFERVESCENT PO PRN (06:25)
[2016-10-24] MEDS ORDERED: K-RIDER 10 MEQ/NS 100 ML 10 MEQ/100 ML BAG IV PRN (06:25)
[2016-10-24] MEDS ORDERED: K-DUR TAB 20 MEQ PO PRN (06:25)
[2016-10-24] MEDS: D5 1/2 NS 1000 ML 1,000 ML IV SCH ×2 (06:47→12:27)
[2016-10-24] MEDS: LEVAQUIN PREMIX IV 750 MG 750 MG/150 ML BAG IV SCH (09:05)
[2016-10-24 11:24] LABS: GASTRIC OCCULT BLOOD NEGATIVE (NEGATIVE); PH 3
[2016-10-24 16:13] VITALS: BP 123/80
[2016-10-24 16:34] LABS: HEMATOCRIT 36.7 % (42.0-54.0); HEMOGLOBIN 12.9 g/dL (13.5-18.0)
[2016-10-24] MEDS: K-RIDER 10 MEQ/NS 100 ML 10 MEQ/100 ML BAG IV SCH ×2 (16:48→18:08)
== END 2016-10-24 18:30 | disposition home or self-care (01) | DRG 330 ==
LOC: ER 03:26 → MED/SURG 08:28 → OBSVTOIN 08:28
PROVIDERS: ADMIT Obstetrics & Gynecology Obstetrics; ATTEND Obstetrics & Gynecology Obstetrics
PROC: 0DTJ4ZZ Resection of Appendix, Percutaneous Endoscopic Approach (ICD-10-PCS; 2016-10-20)
PROC: 0DB80ZZ Excision of Small Intestine, Open Approach (ICD-10-PCS; principal; 2016-10-20 08:15)
PROC: 0D190Z9 Bypass Duodenum to Duodenum, Open Approach (ICD-10-PCS; 2016-10-20 08:15)
DX: Q43.0 Meckel's diverticulum (displaced) (hypertrophic) (principal); K56.69 Other intestinal obstruction; R10.33 Periumbilical pain; K52.89 Other specified noninfective gastroenteritis and colitis; R50.82 Postprocedural fever; E87.6 Hypokalemia; Z53.31 Laparoscopic surgical procedure converted to open procedure
CPT/HCPCS: 36415; 74000; 74022; 74177; 80053; 81001; 82150; 82271; 83690; 83735; 84132; 85014; 85018; 85025; 87040; 93005; 93010; 96365; 96374; 96375; 99284; A4216; A4222; S0020; S0028; J0330; J1170; J1644; J1885; J1956; J2001; J2250; J2270; J2405; J2543; J2550; J2710; J3010; J3480; J3490; J7042; J7120